=== PATIENT | male | born 1960 | race Caucasian/White ===

== ENCOUNTER 2023-11-02 19:39 | Inpatient (IN) | payer MEDICARE, OTHER ==
[~2023-11-02] VITALS: Ht 182.9 cm; Wt 63.0 kg
[2023-11-02] MEDS ORDERED: OLAN10TA3 PO (19:53)
[2023-11-02 20:12] LABS: MEAN CORPUSCULAR HGB CONC 33 g/dL (32.5-36.3); WHITE BLOOD COUNT (AUTO) 5.9 K/uL (3.6-10.2)
[2023-11-02 20:36] LABS: BASOPHILS % (AUTO) 0.7 % (0.0-2.0); DIFFERENTIAL COMMENT 0; EOSINOPHILS # (AUTO) 0.3 K/uL (0.0-0.7); EOSINOPHILS % (AUTO) 4.8 % (0.0-7.0); HEMATOCRIT 39.7 % (36.7-47.1); HEMOGLOBIN 13.2 g/dL (12.5-16.3); LYMPHOCYTES # (AUTO) 2.1 K/uL (0.8-4.8); LYMPHOCYTES % (AUTO) 35.8 % (20.5-51.5); MEAN CORPUSCULAR HEMOGLOBIN 28.1 uug (23.8-33.4); MEAN CORPUSCULAR VOLUME 84.7 fL (73.0-96.2); MONOCYTES # (AUTO) 0.4 K/uL (0.1-1.30); MONOCYTES % (AUTO) 6.7 % (0.0-11.0); NEUTROPHILS # (AUTO) 3.1 K/uL (1.8-8.9); PLATELET COUNT (AUTO) 162 K/uL (152-348); RED BLOOD CELL COUNT(AUTO) 4.69 MIL/uL (4.06-5.63); RED CELL DISTRIBUTION WIDTH 15.9 % (12.1-16.2)
[2023-11-02 20:45] LABS: ALANINE AMINOTRANSFERASE 15 U/L (16-63); ALBUMIN 3.3 g/dL (3.4-5.0); ALKALINE PHOSPHATASE 118 U/L (50-136); ASPARTATE AMINOTRANSFERASE 10 U/L (15-37); BILIRUBIN,DIRECT 0.1 mg/dL (0.0-0.2); BILIRUBIN,TOTAL 0.3 mg/dL (0.2-1.0); CALCIUM 8.8 mg/dL (8.5-10.1); CARBON DIOXIDE 33 mmol/L (21-32); CHLORIDE 105 mmol/L (98-107); CREATININE 0.9 mg/dL (0.6-1.3); GLUCOSE 84 mg/dL (74-106); POTASSIUM 4.8 mmol/L (3.5-5.1); SODIUM SERUM 142 mmol/L (136-145); TOTAL PROTEIN, SERUM 6.9 g/dL (6.4-8.2); UREA NITROGEN, BLOOD 21 mg/dL (7-18)
[2023-11-02 21:01] LABS: ETHANOL < 3 MG/DL (0-10)
[2023-11-03 00:15] VITALS: BP 91/64; TEMP 98.2; O2SAT 94
[2023-11-03] MEDS ORDERED: MAG HYDROX/AL HYDROX/SIMETH 30 ML LIQUID UDC PO PRN (00:45)
[2023-11-03] MEDS ORDERED: CLONAZEPAM 0.5 MG TABLET PO PRN (00:45)
[2023-11-03] MEDS ORDERED: MAGNESIUM HYDROXIDE 30 ML LIQUID UDC PO PRN (00:45)
[2023-11-03] MEDS: BLOOD SUGAR DIAGNOSTIC 1 EACH STRIP VI ONE (00:45)
[2023-11-03 07:51] VITALS: BP 95/54; TEMP 98.2; O2SAT 98
[2023-11-03] MEDS ORDERED: OLANZAPINE 5 MG TABLET PO SCH (10:00)
[2023-11-03] MEDS: FLUOXETINE HCL 20 MG CAPSULE PO SCH (11:29)
[2023-11-03] MEDS: OLANZAPINE 5 MG TABLET PO SCH (11:30)
[2023-11-03 15:27] VITALS: BP 94/64; TEMP 97.8; O2SAT 98
[2023-11-03 20:00] VITALS: BP 84/60; TEMP 98; O2SAT 97
[2023-11-04 08:07] LABS: ALBUMIN 3.1 g/dL (3.4-5.0); BILIRUBIN,TOTAL 0.5 mg/dL (0.2-1.0); CREATININE 0.9 mg/dL (0.6-1.3); POTASSIUM 4.3 mmol/L (3.5-5.1); TOTAL PROTEIN, SERUM 6.5 g/dL (6.4-8.2)
[2023-11-04 08:09] VITALS: BP 108/68; TEMP 98; O2SAT 100
[2023-11-04 15:15] VITALS: BP 91/52; TEMP 98; O2SAT 100
[2023-11-04] MEDS: OLANZAPINE 5 MG TABLET PO SCH (17:19)
[2023-11-04 20:00] VITALS: BP 100/69; TEMP 98.8; O2SAT 98
[2023-11-05 08:13] VITALS: BP 89/55; TEMP 98.4; O2SAT 98
[2023-11-05 09:30] VITALS: BP 94/56; O2SAT 97
[2023-11-05 16:12] VITALS: BP 82/45; TEMP 98.2; O2SAT 98
[2023-11-05 20:00] VITALS: BP 102/60; TEMP 98.2; O2SAT 99
[2023-11-06 08:07] VITALS: BP 104/58; TEMP 98.3; O2SAT 98
[2023-11-06 16:43] VITALS: BP 118/77; TEMP 98.1; O2SAT 97
[2023-11-06 19:57] VITALS: BP 90/50; TEMP 98; O2SAT 99
[2023-11-06] MEDS: ACETAMINOPHEN 325 MG TABLET PO PRN (21:12)
[2023-11-07 07:43] VITALS: BP 99/56; TEMP 98; O2SAT 98
[2023-11-07 16:10] VITALS: BP 95/66; TEMP 98; O2SAT 97
[2023-11-07 19:54] VITALS: BP 106/65; TEMP 98.1; O2SAT 99
[2023-11-08 08:08] VITALS: BP 98/58; TEMP 97.4; O2SAT 99
[2023-11-08 19:56] VITALS: BP 100/56; TEMP 98.1; O2SAT 96
[2023-11-08] MEDS: TEMAZEPAM 7.5 MG CAPSULE PO PRN (20:42)
[2023-11-09 07:59] VITALS: BP 105/69; TEMP 98; O2SAT 98
[2023-11-09 15:29] VITALS: BP 107/67; TEMP 98; O2SAT 99
[2023-11-09 19:58] VITALS: BP 111/64; TEMP 97.9; O2SAT 98
[2023-11-10 08:01] VITALS: BP 100/61; TEMP 98.2; O2SAT 98
[2023-11-10 15:08] VITALS: BP 95/52; TEMP 98.6; O2SAT 98
[2023-11-10 20:00] VITALS: BP 130/75; TEMP 98.5; O2SAT 100
[2023-11-11 08:00] VITALS: BP 93/54; TEMP 98; O2SAT 99
[2023-11-11] MEDS: FLUOXETINE HCL 10 MG CAPSULE PO SCH (08:40)
[2023-11-11] MEDS: DIVALPROEX 250 MG TABLET.DR PO SCH (08:41)
[2023-11-11 15:48] VITALS: BP 95/56; TEMP 98.4; O2SAT 98
[2023-11-11 20:00] VITALS: BP 90/54; TEMP 97.8; O2SAT 97
[2023-11-12 08:16] VITALS: BP 91/52; TEMP 98.2; O2SAT 97
[2023-11-12 16:26] VITALS: BP 92/53; TEMP 98; O2SAT 97
[2023-11-12 20:00] VITALS: BP 100/60; TEMP 97.6; O2SAT 99
[2023-11-13 08:43] VITALS: BP 105/64; TEMP 98; O2SAT 98
[2023-11-13 15:53] VITALS: BP 109/67; TEMP 98; O2SAT 98
[2023-11-13 19:53] VITALS: BP 112/66; TEMP 98.1; O2SAT 97
[2023-11-14 08:06] VITALS: BP 112/65; TEMP 99.5; O2SAT 98
[2023-11-14 11:45] VITALS: TEMP 98.1
== END 2023-11-14 12:25 | DRG 885 ==
LOC: ER 19:43 → GPS 21:00
PROVIDERS: ADMIT Psychiatry & Neurology Psychiatry; ATTEND Nurse Practitioner Acute Care
DX: F20.9 Schizophrenia, unspecified (principal); E44.1 Mild protein-calorie malnutrition; E88.09 Other disorders of plasma-protein metabolism, not elsewhere classified; F17.210 Nicotine dependence, cigarettes, uncomplicated; F41.9 Anxiety disorder, unspecified; R79.89 Other specified abnormal findings of blood chemistry; J45.909 Unspecified asthma, uncomplicated; Z91.51 Personal history of suicidal behavior; Z79.899 Other long term (current) drug therapy; Z60.8 Other problems related to social environment
CPT/HCPCS: 36415; 85025; G0480; J3490